=== PATIENT | female | born 1980 | race Caucasian/White ===

== ENCOUNTER 2018-06-28 20:06 | Inpatient (IN) | payer OTHER ==
[~2018-06-28] VITALS: Ht 165.1 cm; Wt 78.5 kg
[~2018-06-28 20:06] MED LIST: AMITRIPTYLINE H25 M2 PO; BACTRIM DS TAB1 EACH PO; COLACE100 MG PO; CYMBALTA60 MG PO; EC-NAPROSYN500 M1 PO; FLOMAX0.4 MG PO; IBUPROFEN 800800 MG PO; JANUMET 50-1,01 EACH PO; JANUMET XR 50-1 EAC1; MAXALT; MAXALT MLT10 MG; NAPROSYN500 MG; NEURONTIN 400400 M1 PO; NORCO 5-325 TA1 EAC1 PO; NORCO 5-325 TA1 EACH PO; PERCOCET 5-3251 EACH PO; PYRIDIUM100 M1 PO; ZOFRAN ODT4 MG PO; ZOFRAN4 MG PO; ZYRTEC10 M2 PO
[2018-06-28 20:27] VITALS: BP 122/72
[2018-06-28] MEDS ORDERED: SINGULAIR 10 MG10 M1 PO (20:31)
[2018-06-28 20:41] LABS: URINE BILIRUBIN NEGATIVE (Negative); URINE BLOOD 3+ (Negative); URINE CLARITY CLEAR; URINE COLOR YELLOW; URINE GLUCOSE-RANDOM NEGATIVE (Negative); URINE KETONES TRACE (Negative); URINE LEUKOCYTES-REFLEX TRACE (Negative); URINE NITRITE-REFLEX NEGATIVE (Negative); URINE PROTEIN TRACE (Negative); URINE SPECIFIC GRAVITY 1.025 (1.005-1.030); URINE UROBILINOGEN 0.2 E.U./dl (0.2-1.0)
[2018-06-28 20:50] LABS: ABSOLUTE BASOPHILS 0.1 thou/uL (0.0-0.2); ABSOLUTE EOSINOPHILS 0.1 thou/uL (0.0-0.7); ABSOLUTE LYMPHOCYTES 4.1 thou/uL (0.8-5.3); BASOPHILS 0.4 %; EOSINOPHILS 0.6 %; HEMATOCRIT 36.9 % (37.0-47.0); HEMOGLOBIN 12.4 gm/dL (12.0-15.0); LYMPHOCYTES 33.5 %; MCH 27.5 pg (26.0-34.0); MCHC 33.6 g/dL (28.0-37.0); MCV 81.8 fL (80.0-100.0); MONOCYTES 8.3 %; MPV 9.4 fl. (7.2-11.1); NUCLEATED RBCS 0 /100WBC; PLATELET COUNT* 326 thou/uL (150-400); POLYS 57.2 %; RBC 4.52 mil/uL (4.20-5.00); RDW-CV 13.8 % (10.5-14.5); WBC 12.2 thou/uL (4.0-11.0)
[2018-06-28 20:52] LABS: MUCUS >6 Heavy strn/LPF (None Seen); SQUAMOUS >10 Many /LPF (0-3)
[2018-06-28 20:53] LABS: CASTS None Seen /LPF (None Seen); URINE RBC >20 Many /HPF (0-2); URINE WBC-REFLEX 0-5 Rare /HPF (0-5)
[2018-06-28 20:54] LABS: BACTERIA-REFLEX 1-9 Few /HPF (None Seen); CRYSTALS None Seen /LPF (None Seen)
[2018-06-28 21:00] LABS: CALCIUM 8.7 mg/dL (8.5-10.1); CREATININE 0.8 mg/dL (0.6-1.3); POTASSIUM 3.9 mmol/L (3.5-5.1)
[2018-06-28 21:04] LABS: ALBUMIN 3.3 g/dL (3.4-5.0); TOTAL BILIRUBIN 0.2 mg/dL (<0.1-1.0); TOTAL PROTEIN 7.6 g/dL (6.4-8.2)
[2018-06-28] MEDS ORDERED: NORCO 5-325 TA1 EACH PO (21:17)
[2018-06-28] MEDS ORDERED: FLOMAX0.4 MG PO (21:17)
[2018-06-28 22:37] VITALS: BP 131/74
[2018-06-28 22:38] VITALS: BP 107/71
[2018-06-28 23:41] VITALS: BP 139/61
[2018-06-29 00:12] VITALS: BP 107/59
[2018-06-29 04:14] VITALS: BP 99/57
[2018-06-29 08:45] VITALS: BP 94/54
[2018-06-29] MEDS ORDERED: IBUPROFEN 600600 M1 PO (10:53)
[2018-06-29] MEDS ORDERED: FLOMAX0.4 MG PO (10:53)
[2018-06-29] MEDS ORDERED: NORCO 5-325 TA1 EACH PO (10:53)
[2018-06-29 12:28] VITALS: BP 94/54
== END 2018-06-29 14:20 | disposition home or self-care (01) | DRG 694 ==
LOC: M.ERS 20:06 → M.ORTHSURG 21:45 → M.TBA-ER 21:45 → M.ORTHSURG 22:23
PROVIDERS: Physician Assistant; ADMIT Internal Medicine
DX: N13.0 Hydronephrosis with ureteropelvic junction obstruction (principal); J45.909 Unspecified asthma, uncomplicated; N20.0 Calculus of kidney; G43.909 Migraine, unspecified, not intractable, without status migrainosus; Z98.84 Bariatric surgery status; Z88.0 Allergy status to penicillin; Z87.891 Personal history of nicotine dependence; Z23 Encounter for immunization; Z79.899 Other long term (current) drug therapy

== ENCOUNTER → 2018-10-27 | Outpatient (CLI) | payer OTHER ==
[~2018-10-27] MED LIST changes: +IBUPROFEN 600600 M1 PO; +SINGULAIR 10 MG10 M1 PO
== END ==
LOC: M.ULTRA 10:00
DX: N83.291 Other ovarian cyst, right side (principal); N88.8 Other specified noninflammatory disorders of cervix uteri

== ENCOUNTER → 2021-06-16 | Day surgery (SDC) | payer OTHER ==
[~2021-06-16] MED LIST changes: +ULTRAM 50MG TAB50 MG PO
--- NOTE | 2021-06-17 08:47 | OP ---
[address] [address] OPERATIVE REPORT Name: YESICA ANDERSEN Room: [facility].#: [id number] Admission: 06/16/21 Attend Phys: Chapis Garcia DO Discharge: Date of : 78 Report #: [id number] THIS REPORT FOR: cc: Nilson Melendez,Chapis Yeung DO ~ cc: Nilson Melendez DO DATE OF SURGERY: 06/16/2021 PREOPERATIVE DIAGNOSIS: Left medial thigh hidradenitis suppurativa. POSTOPERATIVE DIAGNOSIS: Left medial thigh hidradenitis suppurativa. PROCEDURE PERFORMED: Excision of left medial thigh hidradenitis. SURGEON: Chapis Garcia DO CO-SURGEON: Daniel Riley DO, PGY5. SUSPENSION CORD TIER: MS Antwan3. FINDINGS: Multiple cysts with old incision sites in the left medial thigh. ESTIMATED BLOOD LOSS: 5. ANESTHESIA: General and local. SPECIMEN: Left thigh hidradenitis. COMPLICATIONS: None. HISTORY OF PRESENT ILLNESS: The patient is a 41-year-old female with history of recurrent cyst in her left medial thigh, requiring incision and drainage. She has been seen by Dermatology, who recommended formal surgical evaluation. On exam, she did have some mild inflammation of some cysts with evidence of scarring from previous surgeries. We discussed excision of the area to help prevent this from happening in the future. Risks, benefits and alternatives of excision were discussed at length with her and she agreed to proceed. DESCRIPTION OF PROCEDURE: After consent was obtained, the patient was taken to the operating room and placed in the supine position. SCDs to bilateral lower extremities and the patient was safety belted to the bed. Two grams of Ancef given for surgical prophylaxis. The patient underwent general endotracheal anesthesia without any complication. The patient was then placed in lithotomy and the left medial thigh was prepped [place] [address] OPERATIVE REPORT Name: GANESHYESICA JONATHAN Room: [facility]#: [id number] Admission: 06/16/21 Attend Phys: Chapis Garcia DO Discharge: Date of : 78 Report #: [id number] fashion. Timeout was then performed confirming the patient and procedure. An elliptical incision using a 15 blade scalpel was used to incorporate the 2 cysts along with the previous scarring from incisions. The incision measured 7 x 2 x 1 cm and the depth of dissection was down to subcutaneous tissue. Once the cysts were completely excised and removed from the surrounding subcutaneous tissue, they were sent for pathologic evaluation. The specimen measured 5 x 2 x 1 cm. Hemostasis was ensured with electrocautery and a layered closure using a 3-0 Vicryl was performed to close subcutaneous tissue, 4-0 Monocryl was used in a subcuticular fashion to reapproximate the skin. Sterile skin glue was applied to the incision. All needle, instrument and sponge counts were correct x 2 at the end of the case. The patient was then awoken from anesthesia and transferred to PACU in stable condition. <ELECTRONICALLY SIGNED> By: Chapis Garcia DO 06/17/21 0847 0816 [id number] Garcia DO /nt
--- NOTE | 2021-06-18 14:07 | PATH ---
[address] [address] PATHOLOGY RPT PROCEDURE Name: YESICA TERESA Room: [facility].#: [id number] Admission: 06/16/21 Date of : 78 Discharge: Report #: [id number] Path Case #: [id number] [facility] Accession Number: [id number] . 01 Material submitted: . thigh - LEFT MEDIAL THIGH HIDRADENITIS. Modifiers: left, medial . 01 Clinical history: . EXCISION CYST HIDRADENITIS . 02 Diagnosis: Left medial thigh hidradenitis: - Benign skin with features typical of hidradenitis including epithelial inclusion cyst, chronic and focal foreign body type granulomatous inflammation and fibrosis. (DONNIE:[facility]; 06/18/2021) QTP 06/18/2021 1154 Local . 02 Electronically signed: . Ramesh Ware MD, Pathologist NPI- [id number] . 01 Gross description: . The specimen is received in formalin, labeled "Yesica Teresa, left medial thigh hidradenitis". Sectioning reveals white-wilkins to yellow-wilkins cut surfaces with no grossly distinct nodules or lesions. The specimen is submitted entirely in cassettes A1 through A5. ([facility]; 06/17/2021) QAC/QAC 06/17/2021 0947 Local . 02 Pathologist provided ICD-10: L73.2 . 02 CPT . 025508 Specimen Comment: A courtesy copy of this report has been sent to [phone], [phone] Specimen Comment: [id number] Specimen Comment: Report sent to / DR DUMONT Performed at: [id number] [facility] [address], [place] [id number] MD Edwardo Espino MD Phone: [phone] Performed at: 02 [facility] [address], [place], [place] [id number] MD Ramesh Ware MD Phone: [phone]
== END | disposition home or self-care (01) ==
LOC: M.SUR 06:11
PROVIDERS: ATTEND Surgery
DX: L73.2 Hidradenitis suppurativa (principal); Z98.890 Other specified postprocedural states; Z79.899 Other long term (current) drug therapy; Z20.822 Contact with and (suspected) exposure to COVID-19